=== PATIENT | male | born 1935 | race African-American/Black ===

== ENCOUNTER 2019-06-11 14:11 | Emergency (ER) | payer OTHER ==
[~2019-06-11] VITALS: Ht 175.3 cm; Wt 75.7 kg
[~2019-06-11 14:11] MED LIST: ACET-2619
[2019-06-11 14:18] VITALS: BP 145/81
--- NOTE | 2019-06-11 14:30 | NUR ---
83/M TOOTHE PAIN X 2 MONTHS. TOOTH IS LOOSE AND MAKES IT DIFFICULT TO EAT. TOOTH EXTRACTION NOT COVERED BY HIS INSURANCE. ALLERGIES: NKA MED HX: HTN AND PACEMAKER
--- NOTE | 2019-06-11 14:53 | NUR ---
Patient discharged with v/s stable. Written and verbal after care instructions given and explained. Patient verbalized understanding. Ambulatory with steady gait. All questions addressed prior to discharge. Advised to follow up with PMD.
[2019-06-11 14:56] VITALS: BP 145/81
== END 2019-06-11 14:53 | disposition home or self-care (01) ==
LOC: MED 14:11
DX: K08.89 Other specified disorders of teeth and supporting structures (principal); I10 Essential (primary) hypertension; Z95.0 Presence of cardiac pacemaker; Z79.899 Other long term (current) drug therapy
CPT/HCPCS: 99281